=== PATIENT | male | born 1965 | race Hispanic/Latino ===

== ENCOUNTER → 2019-07-09 | Day surgery (SDC) | payer OTHER ==
[2019-07-06 16:17] LABS: BASOPHILS % 0.3 % (0.0-1.0); EOSINOPHILS # (AUTO) 0.1 (0.0-0.4); EOSINOPHILS % 2.1 % (0.0-6.0); HEMATOCRIT 38.7 % (38.2-49.6); HEMOGLOBIN 12.5 g/dL (14.0-18.0); LYMPHOCYTES # (AUTO) 2.7 (1.0-3.2); LYMPHOCYTES % 43.3 % (18.0-39.1); MEAN CORPUSCULAR HEMOGLOBIN 28.2 pg (28-32); MEAN CORPUSCULAR HGB CONC 32.3 g/dL (31-35); MEAN CORPUSCULAR VOLUME 87.2 fL (81-99); MONOCYTES # (AUTO) 0.4 (0.2-0.8); MONOCYTES % 6.5 % (4.4-11.3); NEUTROPHILS # (AUTO) 2.9 (2.1-6.9); NEUTROPHILS % 47.6 % (38.7-80.0); PLATELET COUNT 188 x10e3/uL (140-360); RED BLOOD COUNT 4.44 x10e6/uL (4.3-5.7); RED CELL DISTRIBUTION WIDTH 13.2 % (11.7-14.4)
[2019-07-06 16:34] LABS: ANION GAP 13.5 mmol/L (8-16); BLOOD UREA NITROGEN 11 mg/dL (7-26); BUN/CREATININE RATIO 12 (6-25); CALCIUM 9.1 mg/dL (8.4-10.2); CARBON DIOXIDE 25 mmol/L (22-29); CHLORIDE 107 mmol/L (98-107); CREATININE, SERUM 0.95 mg/dL (0.72-1.25); EST GLOMERULAR FILTRATION RATE > 60 ML/MIN (60-); GLUCOSE 88 mg/dL (74-118); POTASSIUM 3.5 mmol/L (3.5-5.1); SODIUM 142 mmol/L (136-145)
--- NOTE | 2019-07-06 17:09 | Diagnostic Imaging Report ---
Examination: Chest PA and lateral view of the chest. COMPARISON: None. INDICATION: Preadmission DISCUSSION: Lines/tubes: None. Lungs: The lungs are well inflated and clear. No pneumonia or pulmonary edema. Pleura: No pleural effusion or pneumothorax. Heart and mediastinum: The heart and the mediastinum are unremarkable. Bones and soft tissues: No acute bony abnormalities. IMPRESSION: 1. No acute cardiopulmonary abnormalities. Signed by: Dr. Waldemar Still M.D. on 07/06/2019 5:06 PM
[~2019-07-09] MED LIST: ACETAMINOPHEN 1000 MG/100 ML IV ONE; BUPIVACAINE HCL 0.5% INJ 30 ML VIAL INJ ONE; CEFAZOLIN SOD 1 GM/NS 50ML 100 ML IV ONE; CENTRUM SILVER1 EAC3 PO; DEXAMETHASONE SOD PHOS INJ 4 MG/ML VIAL ONE; ECHINACEA80 MG PO; ENOXAPARIN40 MG/0.4 SC; ETOMIDATE 2 MG/ML 10 ML INJ IV ONE; KETOROLAC TROMETHAMINE 30 MG/ML VIAL ONE; LIDOCAINE HCL 2% LOCAL INJ 5 ML SDV VIAL INJ ONE; LISINOPRIL10 MG PO; NEOSTIGMINE 1 MG/ML 10ML VIAL ONE; OMEGA 3 1,0001 EACH PO; ONDANSETRON HCL INJ 2MG/ML 2ML 2 MG/ML VIAL ONE; ONDANSETRON PO; SEVOFLURANE INHAL SOLN 250 ML PEN BTL ONE; SIMVASTATIN40 MG PO; ULTRAM50 MG PO; VITAMIN D22000 UNIT PO
[2019-07-09 11:00] VITALS: BP 135/83
--- NOTE | 2019-07-13 20:36 | Operative Report ---
DATE OF PROCEDURE: 07/09/2019 SURGEON: Valentin Galloway DPM ROOM NUMBER: [facility]. PREOPERATIVE DIAGNOSES: 1. Bone spur, left ankle. 2. Bone spurs, digits 2, 3, 4, and 5 digits, left foot. 3. Bone spurs, 2nd, 3rd and hallux, right foot. 4. Hammertoe, 5th digit, right foot. PROCEDURES LIST: 1. Excision bone spur, left ankle. 2. Exostectomy, 2nd, 3rd, 4th, and 5th digits, left foot. 3. Exostectomy, 2nd and 3rd digits and hallux, right foot. 4. Arthroplasty, 5th digit, right foot. ANESTHESIA: General endotracheal. HEMOSTASIS: Bilateral thigh tourniquet 350 mmHg. PROCEDURE IN DETAIL: The patient taken to the operating room in a mildly sedated state and placed on the operating table in supine position. Following induction of general anesthetic, the left lower extremity was elevated to 60 degrees to exsanguinate before inflating the pneumatic thigh tourniquet to 350 mmHg for hemostasis. Left lower extremity was placed on the operating table prior to performing following procedure. Procedure #1: Exostectomy, left ankle. An approximate 3 cm dorsal medial incision was made overlying the anterior aspect of the left ankle. The incision was deepened via sharp and blunt dissection on the level of dorsal capsular structure. The old talotibial articulation was noted to have large projection of bone, which was remodeled and smoothed. The area was irrigated with copious amounts of sterile saline solution. Capsular closure was 3-0 Vicryl and skin closure 4-0 nylon. Procedure #2: Exostectomies 2, 3, 4, and 5 of the left foot. Dorsal incisions were made on the dorsal lateral aspect of digits 2, 3, 4, and 5 of the left foot. The incisions were deepened and power rasp was used to smooth the 2nd, 3rd, 4th, and 5th digits of the left foot, irrigated and closed with 3-0 Vicryl and 4-0 nylon. Attention was then directed to the right foot. The right 2nd and 3rd digits as well as right hallux were all treated with similar exostectomy. Linear longitudinal incisions were placed and the large bone spurs were resected utilizing combination of oscillating saw and digital rasp. That having been accomplished, attention was directed to the 5th digit of the right foot. Two linear longitudinal incision was made overlying the 5th digit proximal phalangeal joint level. Head of the proximal phalanx was resected utilizing oscillating saw, irrigated and closed with 3-0 Vicryl and 4-0 nylon. All areas of surgery were blocked with 0.5 Marcaine and Decadron [place]. The appropriate mildly compressive dressings were applied. Released the pneumatic thigh tourniquets, both left and right showed normal hyperemic flush to all digits of both feet. The patient left the operating room, vital signs stable, in apparent satisfactory condition having tolerated both anesthetic and procedure very well. JAMES Stoddard/NORMA /[id number]
== END | disposition home or self-care (01) ==
LOC: OR 05:38
PROVIDERS: ATTEND Podiatrist Foot Surgery
DX: M77.52 Other enthesopathy of left foot and ankle (principal); M77.51 Other enthesopathy of right foot and ankle; M20.41 Other hammer toe(s) (acquired), right foot; I10 Essential (primary) hypertension; E11.9 Type 2 diabetes mellitus without complications; K21.9 Gastro-esophageal reflux disease without esophagitis; Z01.810 Encounter for preprocedural cardiovascular examination; Z01.812 Encounter for preprocedural laboratory examination; Z01.818 Encounter for other preprocedural examination; Z11.59 Encounter for screening for other viral diseases
CPT/HCPCS: 27635; 28108 ×2; 28285; 36415 ×2; 71046; 80048; 82948; 85025; 87635; 88305; 88311; 93005; J0131; J0690; J1100; J1885; J2001; J2405; J2710; 88304; Q4100